=== PATIENT | female | born 1945 | race Caucasian/White ===

== ENCOUNTER 2017-09-27 17:46 | Inpatient (IN) | payer MEDICARE, OTHER ==
[~2017-09-27] VITALS: Ht 172.7 cm; Wt 89.5 kg
[~2017-09-27 17:46] MED LIST: ASPI-1264 PO; ATOR20TA PO; DIGO125T PO; ESCI10TA45 PO; FISH1CAP15 PO; FLEC50TA10 PO; METO50TA7 PO; MULT-785 PO; VITA1CAP62 PO; [UNRECOGNIZED DRUG - CODE] PO
[2017-09-27 18:22] LABS: BASOPHILS % (AUTO) 0.5 % (0-1); EOSINOPHILS # (AUTO) 0.2 X10'3 (0-0.9); EOSINOPHILS % (AUTO) 1.9 % (0-6); HEMATOCRIT 44.5 % (35.0-45.0); LYMPHOCYTES # (AUTO) 2.4 X10'3 (1.1-4.8); LYMPHOCYTES % (AUTO) 23.1 % (21-51); MEAN CORPUSCULAR HEMOGLOBIN 30.8 PG (27.0-31.0); MEAN CORPUSCULAR HGB CONC 33.8 % (33.0-36.5); MEAN CORPUSCULAR VOLUME 91.2 FL (78-98); MEAN PLATELET VOLUME 7.8 FL (7.4-10.4); MONOCYTES # (AUTO) 0.9 X10'3 (0-0.9); MONOCYTES % (AUTO) 8.9 % (2-12); NEUTROPHILS # (AUTO) 6.8 X10'3 (1.8-7.7); NEUTROPHILS % (AUTO) 65.6 % (42-75); PLATELET COUNT 305 X10'3 (140-440); RED BLOOD COUNT 4.88 X10'6 (4.20-5.60); RED CELL DISTRIBUTION WIDTH 14.4 % (11.5-14.5); WHITE BLOOD COUNT 10.3 X10'3 (4.5-11.0)
[2017-09-27 18:28] LABS: CLARITY,URINE SLIGHTLY CLOUDY (Clear); COLOR,URINE STRAW (Yellow); GLUCOSE, URINE NEGATIVE (Neg); KETONES,URINE NEGATIVE (Neg); LEUKOCYTE ESTERASE ,URINE NEGATIVE (Neg); NITRITES, URINE NEGATIVE (Neg); OCCULT BLOOD,URINE MODERATE (Neg); PROTEIN,URINE NEGATIVE (Neg); UROBILINOGEN,URINE 0.2 E.U/dL (0.2-1.0)
[2017-09-27 18:29] LABS: UA COLLECTION TYPE CLN CATCH MIDSTREAM
[2017-09-27 18:32] LABS: INR 2.2 INR; PARTIAL THROMBOPLASTIN TIME 32 SECONDS (22-32)
[2017-09-27 18:36] LABS: MUCUS STRANDS NONE SEEN /LPF (Neg); SQUAMOUS EPITHELIAL CELL,UR FEW /LPF (FEW)
[2017-09-27 18:37] LABS: ALANINE AMINOTRANSFERASE 23 U/L (12-78); ALBUMIN 3.8 G/DL (3.4-5.0); ALKALINE PHOSPHATASE 130 IU/L (46-116); ANION GAP 9 (8-16); ASPARTATE AMINO TRANSFERASE 15 U/L (10-37); BILIRUBIN,TOTAL 0.6 MG/DL (0.1-1.0); BLOOD UREA NITROGEN 19 MG/DL (7-18); BUN/CREATININE RATIO 21.8 (6.6-38.0); CHLORIDE 106 MMOL/L (99-107); CREATININE 0.87 MG/DL (0.40-0.90); GLUCOSE 149 MG/DL (70-104); POTASSIUM 3.9 MMOL/L (3.5-5.1); SODIUM 144 MMOL/L (135-145); TOTAL CARBON DIOXIDE 29.3 MMOL/L (24-32); TOTAL PROTEIN 7.7 G/DL (6.4-8.2); eGFR 64 ML/MIN
[2017-09-27 18:37] LABS: BACTERIA,URINE FEW /HPF (Neg); RBC,URINE 0-2 /HPF (0-2); WBC,URINE 0-4 /HPF (0-4)
[2017-09-27] MEDS ORDERED: aspirin 81mg tab.chew PO ONE (19:00)
[2017-09-27] MEDS ORDERED: nitroGLYCERIN 0.4mg/hour patch TD ONE (19:00)
[2017-09-27] MEDS: diltiazem 5mg/ml 5ml inj. IV ONE ×2 (19:09→19:15)
[2017-09-27] MEDS ORDERED: mag hydrox/Alum hydrox/simeth 30ml oral suspension PO PRN (20:40)
[2017-09-27] MEDS ORDERED: acetaminophen 325mg tablet PO PRN (20:40)
[2017-09-27] MEDS ORDERED: magnesium hydroxide 30ml (MOM) UD suspension PO PRN (20:40)
[2017-09-27] MEDS ORDERED: ondansetron/PF 4mg/2ml inj IV PRN (20:40)
[2017-09-27] MEDS ORDERED: morphine 2 MG/ML inj. syringe IV PRN (20:50)
[2017-09-27] MEDS: normal saline 1000ml 1,000 ML IV SCH (21:16)
[2017-09-27] MEDS: atorvastatin 20mg tablet PO SCH (21:16)
[2017-09-27 21:28] LABS: LIPASE 130 U/L (73-393)
[2017-09-27 21:29] LABS: POTASSIUM 3.8 MMOL/L (3.5-5.1)
[2017-09-27] MEDS: acetaminophen 325mg tablet PO PRN (23:45)
[2017-09-28] MEDS: normal saline 1000ml 1,000 ML IV SCH ×3 (03:42→16:54)
[2017-09-28] MEDS ORDERED: FLEC100T2 PO (07:21)
[2017-09-28] MEDS ORDERED: WARF5TAB7 (07:26)
[2017-09-28] MEDS ORDERED: TRAM50TA2 (07:26)
[2017-09-28] MEDS ORDERED: METO-395 PO (07:26)
[2017-09-28] MEDS: pantoprazole 40mg Tablet.DR PO SCH (07:30)
[2017-09-28] MEDS ORDERED: citalopram 20mg tablet PO SCH (08:00)
[2017-09-28] MEDS ORDERED: non-formulary drug (Metoprolol Succinate* (Toprol Xl*) 50 MG) PO SCH (08:00)
[2017-09-28] MEDS ORDERED: digoxin 125mcg (0.125mg) tablet PO SCH (08:00)
[2017-09-28] MEDS ORDERED: aspirin 325mg tablet PO SCH (08:00)
[2017-09-28] MEDS ORDERED: flecainide 50mg tablet PO SCH (08:00)
[2017-09-28] MEDS ORDERED: metoprolol succinate 25mg (24-HOUR) SR. Tablet PO SCH (08:00)
[2017-09-28] MEDS: acetaminophen 325mg tablet PO PRN ×2 (08:33→16:19)
[2017-09-28 15:56] VITALS: BP 132/69
[2017-09-28] MEDS ORDERED: TRAM1TAB PO (17:31)
[2017-09-28] MEDS ORDERED: FLEC50TA PO (17:31)
[2017-09-28 19:00] VITALS: BP 163/71
[2017-09-28] MEDS: atorvastatin 20mg tablet PO SCH (20:09)
[2017-09-28] MEDS: flecainide 50mg tablet PO SCH (20:10)
[2017-09-28] MEDS ORDERED: warfarin 5mg tablet PO ONE (21:00)
[2017-09-28 23:00] VITALS: BP 157/76
[2017-09-29] MEDS: normal saline 1000ml 1,000 ML IV SCH ×3 (00:10→12:44)
[2017-09-29 03:00] VITALS: BP 193/92
[2017-09-29] MEDS: cloNIDine 0.1 mg tablet PO SCH ×2 (03:21→07:36)
[2017-09-29 04:00] VITALS: BP 159/62
[2017-09-29 06:00] VITALS: BP 167/90
[2017-09-29 06:53] LABS: INR 1.5 INR; PROTHROMBIN TIME 15.6 SECONDS (9.0-12.0)
[2017-09-29] MEDS: pantoprazole 40mg Tablet.DR PO SCH (07:30)
[2017-09-29] MEDS: flecainide 50mg tablet PO SCH (07:36)
[2017-09-29] MEDS ORDERED: metoprolol succinate 25mg (24-HOUR) SR. Tablet PO SCH (08:00)
[2017-09-29] MEDS ORDERED: METO-395 PO (09:45)
== END 2017-09-29 12:30 | disposition home or self-care (01) | DRG 308 ==
LOC: ER 17:47 → ED HOLD 20:39 → EDBEDREQ 09-28 14:03 → PCU 3S 09-28 17:08
PROVIDERS: ADMIT Family Medicine; ATTEND Internal Medicine
DX: I48.91 Unspecified atrial fibrillation (principal); I50.23 Acute on chronic systolic (congestive) heart failure; E78.00 Pure hypercholesterolemia, unspecified; Z90.710 Acquired absence of both cervix and uterus; Z88.0 Allergy status to penicillin; Z79.01 Long term (current) use of anticoagulants; Z79.899 Other long term (current) drug therapy; Z79.82 Long term (current) use of aspirin; Z87.891 Personal history of nicotine dependence
CPT/HCPCS: 36415; 71045; 80053; 80162; 81001; 83690; 83735; 84132; 84443; 84484; 85025; 85610; 85730; 87070; 93005; 93306; 99285; J3490; J7030

== ENCOUNTER 2017-12-27 15:12 | Emergency (ER) | payer MEDICARE, OTHER ==
[~2017-12-27] VITALS: Ht 172.7 cm; Wt 91.0 kg
[~2017-12-27 15:12] MED LIST changes: -ASPI-1264 PO; -DIGO125T PO; -ESCI10TA45 PO; -FISH1CAP15 PO; +FLEC50TA PO; -FLEC50TA10 PO; +METO-395 PO; -METO50TA7 PO; +TRAM1TAB PO; +WARF-55; -[UNRECOGNIZED DRUG - CODE] PO
[2017-12-27] MEDS ORDERED: HYDROmorphone 2mg tablet PO ONE (16:15)
[2017-12-27 17:16] VITALS: BP 119/59
== END 2017-12-27 17:19 | disposition home or self-care (01) ==
LOC: ER 15:12
DX: M25.461 Effusion, right knee (principal); M17.11 Unilateral primary osteoarthritis, right knee; E78.00 Pure hypercholesterolemia, unspecified; Z98.890 Other specified postprocedural states; Z90.710 Acquired absence of both cervix and uterus; Z88.0 Allergy status to penicillin; Z79.899 Other long term (current) drug therapy; Z89.412 Acquired absence of left great toe
CPT/HCPCS: 73560; 99284

== ENCOUNTER 2024-10-18 06:43 | Emergency (ER) | payer MEDICARE, OTHER ==
[~2024-10-18] VITALS: Ht 172.7 cm; Wt 92.5 kg
[~2024-10-18 06:43] MED LIST changes: -TRAM1TAB PO; +TRAM1TAB2 PO
[2024-10-18] MEDS: HYDROcodone/acetaminophen 5mg/325mg tablet PO ONE (08:54)
[2024-10-18] MEDS: dexamethasone sod phosphate 10mg/ml inj PO STA (08:54)
[2024-10-18 08:58] VITALS: BP 129/62; PULSE 77; RESP 16; TEMP 98; O2SAT 95
== END 2024-10-18 09:02 | disposition home or self-care (01) ==
LOC: ER 06:45
DX: S00.83XA Contusion of other part of head, initial encounter (principal); E78.00 Pure hypercholesterolemia, unspecified; G89.29 Other chronic pain; Z88.0 Allergy status to penicillin; Z90.710 Acquired absence of both cervix and uterus; Z79.01 Long term (current) use of anticoagulants; Z79.899 Other long term (current) drug therapy; W01.190A Fall on same level from slipping, tripping and stumbling with subsequent striking against furniture, initial encounter; Y93.89 Activity, other specified; Y92.89 Other specified places as the place of occurrence of the external cause; Y99.8 Other external cause status
CPT/HCPCS: 70450; 72125; 99284; J1100; L0172